=== PATIENT | female | born 1950 | race Caucasian/White ===

== ENCOUNTER 2018-12-08 06:27 | Day surgery (SDC) | payer MEDICARE, BC ==
--- NOTE | 2018-11-29 20:36 | HP ---
PREOPERATIVE HISTORY AND PHYSICAL: DATE OF SURGERY/ADMISSION: 12/08/18 DATE OF OFFICE VISIT/ENCOUNTER: 11/13/18 ATTENDING SURGEON: Teri Currie MD.* (DICTATED BY CHARLEE MELISSA) PROCEDURE: Left wrist de Quervain's release. HISTORY OF PRESENT ILLNESS: This is a 68-year-old female who has complaints of left wrist pain ongoing for nearly a year. The pain is located on the radial aspect of her wrist along the first dorsal compartment. She has failed conservative treatment including ibuprofen, topical Arnica, thumb spica wrist brace, and cortisone injection as well as physical therapy. She is now interested in pursuing surgical intervention for this problem in the form of a left wrist de Quervain's release. PAST MEDICAL HISTORY: 1. Asthma. 2. Arthritis. 3. History of hepatitis C approximately 30 years ago. 4. Anxiety/depression. PAST SURGICAL HISTORY: 1. Cholecystectomy. 2. Appendectomy. 3. Tonsillectomy. CURRENT MEDICATIONS: 1. Concerta 18 mg p.r.n. 2. Cymbalta 20 mg daily. 3. Lexapro 20 mg daily. ALLERGIES: No known drug allergies. FAMILY MEDICAL HISTORY: Heart disease and colon cancer. 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 She denies tobacco use and recreational drug use. She drinks alcohol on occasion. REVIEW OF SYSTEMS: Negative for general, cephalic, cardiovascular, respiratory , GI, , other musculoskeletal, integumentary, endocrine, neurologic, and hematologic symptoms. Infectious Diseases: Negative for MRSA, hepatitis C, HIV. PHYSICAL EXAMINATION GENERAL: Well-developed, well-nourished 68-year-old female, in no acute distress. VITAL SIGNS: Height 5 feet 4 inches, weight 160 pounds, blood pressure 136/88, pulse rate 80. HEENT: Normocephalic, atraumatic. Pupils are equal, round, and reactive to light and accommodation. Extraocular movements are intact. Throat is clear. NECK: Supple. No palpable lymph nodes. PULMONARY: Lungs are clear to auscultation bilaterally. No wheezes, rales, or rhonchi. CARDIOVASCULAR: Regular rate and rhythm. S1, S2. No murmurs, rubs, or gallops. No edema. ABDOMEN: Positive bowel sounds. Soft, nontender. NEUROLOGICAL: Alert and oriented x3. Cranial nerves II through XII are intact. Sensation is intact to light touch. MUSCULOSKELETAL: On exam of her left wrist, there is no visible swelling. She has tenderness to palpation of the radial styloid and along the first dorsal compartment, increased pain with abduction of the thumb and extension of the wrist. Full opposition of the thumb to the base of the pinky with no pain. Positive Jackie's test. No tenderness to palpation at the base of the first metacarpal. Neurovascular function is intact. IMPRESSION: Left wrist de Quervain's tenosynovitis. PLAN: The patient is scheduled to undergo a left wrist de Quervain's release with Dr. Currie on 12/08/18. She will return to the office 10 days postop for followup and suture removal. A prescription for Tylenol No. 3 was e-scribed to the patient's pharmacy for postoperative pain management. CHARLEE MELISSA [id number]/CPS #: [id number] MTDEllie
[~2018-12-08 06:27] MED LIST: Buffered Lidocaine 1% SYRIN* 1 ML/SYRINGE INTRADERM ONE; Lactated Ringers 1000 ML Bag* 1,000 ML IV SCH
[2018-12-08] MEDS ORDERED: fentaNYL* 50 MCG/ML 2 ML VIAL (100 MCG VIAL) ONE (07:23)
[2018-12-08] MEDS ORDERED: Midazolam* 1 MG/ML 2 ML VIAL (2 MG) ONE (07:23)
[2018-12-08] MEDS ORDERED: Lidocaine 1% INJ* 10 MG/ML 30 ML SDV ONE (07:27)
[2018-12-08] MEDS ORDERED: Naloxone* 0.4 MG/ML 1 ML VIAL IV PRN (07:57)
[2018-12-08 08:03] VITALS: BP 117/72
--- NOTE | 2018-12-08 13:33 | OP ---
DATE OF OPERATION: 12/08/18 [facility] DATE OF : [birth year]. SURGEON: Teri Currie MD. EMBEDDED SOFTWARE ENGINEER: CHARLEE Martinez. ANESTHESIA: Local MAC. PRE-OP DIAGNOSIS: Left de Quervain tenosynovitis. POST-OP DIAGNOSIS: Left de Quervain tenosynovitis. OPERATIVE PROCEDURE: Left de Quervain release. ESTIMATED BLOOD LOSS: Zero. TOURNIQUET TIME: About 10 minutes. INDICATIONS FOR PROCEDURE: Irena is a 68-year-old female who has pain on the radial aspect of her left wrist. She has failed conservative treatment, presents now for de Quervain release on the left wrist. DESCRIPTION OF PROCEDURE: The patient was brought to the operating room, was given a sedation anesthetic and a local infiltration of 10 cc of 1% plain lidocaine on the radial aspect of her left wrist. The skin of her left upper extremity was prepped and draped in the usual sterile fashion. The hand and forearm were exsanguinated and the tourniquet elevated to 250 mmHg. A longitudinal incision was made on the radial aspect of the wrist, centered at the tip of the radiostyloid. We dissected through the subcutaneous tissue down to the first dorsal compartment. Branches of the radial sensory nerve were located and retracted by the surgical services assistant, CHARLEE Martinez. The first dorsal compartment was incised longitudinally. The APL and EPB tendons were in the same sheath. They were both fully released and were in good condition. The wound was irrigated and the skin edges reapproximated with 4-0 nylon suture. The wound was dressed with Xeroform, 4x4, Webril, and an Castillo wrap. The patient tolerated the procedure well and was brought to the recovery room in good condition. [id number]/[facility] #: [id number] [facility]
== END 2018-12-08 08:30 | disposition home or self-care (01) ==
LOC: OREAST 06:27
PROVIDERS: ATTEND Orthopaedic Surgery
DX: M65.4 Radial styloid tenosynovitis [de Quervain] (principal); J45.909 Unspecified asthma, uncomplicated; M19.90 Unspecified osteoarthritis, unspecified site; F41.8 Other specified anxiety disorders; Z86.19 Personal history of other infectious and parasitic diseases
CPT/HCPCS: J2250; J3010

== ENCOUNTER 2019-04-23 12:24 | Inpatient (IN) | payer MEDICARE, BC ==
--- NOTE | 2019-04-23 13:17 | ED ---
Psychiatric Complaint - HPI Summary HPI Summary: Patient is a 68-year-old female who presents emergency department for a mental health evaluation. Patient notes she has a history of depression and sees a nurse practitioner. Patient notes that she ran out of her Cymbalta over the weekend and notes depression has become worse since. Patient notes suicidal ideations. Patient denies suicide attempts. Notes occasional alcohol use, denies drug use. Patient has been admitted to the psychiatric unit in the past. Patient otherwise denies associated symptoms of fever, cough, chest pain , shortness of breath, abdominal pain, vomiting, diarrhea, urinary symptoms. Symptoms are moderate in severity. No current modifying factors. - History Of Current Complaint Chief Complaint: EDSuicidal Time Seen by Provider: 04/23/19 12:52 Hx Obtained From: Patient - Allergies/Home Medications Allergies/Adverse Reactions: Allergies Allergy/AdvReac Type Severity Reaction Status Date / Time No Known Allergies Allergy Verified 04/23/19 12:50 Home Medications: Home Medications LORazepam TAB(*) [Ativan 0.5 MG TAB (*)] 0.5 mg PO BEDTIME PRN 04/23/19 [ History Confirmed 04/23/19] Methylphenidate TAB* [Ritalin TAB*] 10 mg PO DAILY 04/23/19 [History Confirmed 04/23/19] PMH/Surg Hx/FS Hx/Imm Hx Previously Healthy: Yes Endocrine/Hematology History: Denies: Hx Diabetes Cardiovascular History: Denies: Hx Hypertension, Hx Pacemaker/ICD, Other Cardiovascular Problems/ Disorders Respiratory History: Reports: Hx Asthma - PRN INHALERS Denies: Other Respiratory Problems/Disorders GI History: Denies: Other GI Disorders History: Denies: Hx Renal Disease, Other Problems/Disorders Musculoskeletal History: Reports: Hx Arthritis - SHOULDERS AND KNEES, Hx Tendonitis - LEFT WRIST Denies: Hx Osteoporosis, Other Musculoskeletal History Sensory History: Reports: Hx Contacts or Glasses - GLASSES Denies: Hx Hearing Aid Opthamlomology History: Reports: Hx Contacts or Glasses - GLASSES Neurological History: Denies: Other Neuro Impairments/Disorders Psychiatric History: Reports: Hx Anxiety - ON MEDICATION FOR, Hx Depression - ON MEDICATION FOR Denies: Hx Panic Disorder - Cancer History Hx Chemotherapy: No Hx Radiation Therapy: No - Surgical History Surgery Procedure, Year, and Place: Cholecystectomy 2004-[facility] [place]. appendectomy 26 yrs ago-[facility] [place]. adhesions removed from fallopian tubes 29 yrs ago. TONSILS CHILD Hx Anesthesia Reactions: No Infectious Disease History: No Infectious Disease History: Reports: Hx Hepatitis - UNSURE POSSIBLY "C"-40 YEARS AGO Denies: Traveled Outside the [place] in Last 30 Days - Social History Alcohol Use: Weekly Alcohol Amount: 1 GLASS OF WINE 3-4 TIMES PER WEEK Substance Use Type: Reports: None Smoking Status (MU): Never Smoked Tobacco Have You Smoked in the Last Year: No Review of Systems Constitutional: Negative Negative: Fever Cardiovascular: Negative Respiratory: Negative Gastrointestinal: Negative Genitourinary: Negative Neurological: Negative Positive: Depressed All Other Systems Reviewed And Are Negative: Yes Physical Exam Triage Information Reviewed: Yes Vital Signs On Initial Exam: Initial Vitals Temp Pulse Resp BP Pulse Ox 97.9 F 82 16 172/109 94 04/23/19 12:43 04/23/19 12:43 04/23/19 12:43 04/23/19 12:43 04/23/19 12:43 Vital Signs Reviewed: Yes Appearance: Positive: Well-Appearing - Patient sitting on bed in no acute distress. Family member present. Cooperative. Skin: Positive: Warm, Dry Head/Face: Positive: Normal Head/Face Inspection Eyes: Positive: Normal, EOMI Neck: Positive: Supple Respiratory/Lung Sounds: Positive: Clear to Auscultation, Breath Sounds Present Cardiovascular: Positive: Normal, RRR Neurological: Positive: Normal, Alert, Oriented to Person Place, Time, CN Intact II-III Psychiatric: Positive: Depressed Procedures - Sedation Patient Received Moderate/Deep Sedation with Procedure: No Diagnostics - Vital Signs Vital Signs Temp Pulse Resp BP Pulse Ox 04/23/19 12:43 97.9 F 82 16 172/109 94 - Laboratory Result Diagrams: 04/23/19 13:22 04/23/19 13:22 Lab Statement: Any lab studies that have been ordered have been reviewed, and results considered in the medical decision making process. Course/Dx - Course Course Of Treatment: Patient here for mental health evaluation of increased depression and suicidal ideations. She is medically clear at this time. ECG done [id number] shows a rhythm of 74bpm, normal axis, appropriate intervals. Pt. will be signed out to KALPANA Christine for disposition. - Differential Dx/Clinical Impression Differential Diagnosis/HQI/PQRI: Positive: Anxiety, Depression, Suicidal Ideation Provider Diagnosis: Depression Discharge ED - Sign-Out/Discharge Documenting (check all that apply): Sign-Out Patient Signing out patient TO: Mg Solis - Discharge Plan Condition: Stable Referrals: Linda Torres MD [Primary Care Provider] - - Billing Disposition and Condition Condition: STABLE - Attestation Statements Provider Attestation: I agree with the VICKIE documentation - 68 y/o F p/w depression. Agreeable to voluntary admission. Addendum entered and electronically signed by Edwin Guerra PA 04/23/19 17:38: ED Addendum Addendum: Pt. was accepted to the [facility]. Dispo: [facility] Condition: Stable Dx: Depression, SI.
[2019-04-23 13:29] LABS: ABS Basophils 0.1 10^3/ul (0-0.2); ABS Eosinophils 0.3 10^3/ul (0-0.6); ABS Lymphocytes 3.1 10^3/ul (1.0-4.8); ABS Monocytes 0.4 10^3/ul (0-0.8); ABS Neutrophils 3.3 10^3/ul (1.5-7.7); Eosinophil % 4.1 %; Hematocrit 41 % (35-47); Hemoglobin 13.7 g/dL (12.0-16.0); Mean Corpuscular HGB Conc 34 g/dL (31-36); Mean Corpuscular Hemoglobin 29 pg (27-31); Mean Corpuscular Volume 87 fL (80-97); Mean Platelet Volume 8.1 fL (7.4-10.4); Nucleated Red Blood Cells % 0.1; Platelet Count 233 10^3/uL (150-450); Red Blood Count 4.68 10^6 /uL (3.70-4.87); Red Cell Distribution Width 14 % (10-15); White Blood Count 7.2 10^3/uL (3.5-10.8)
[2019-04-23 13:48] LABS: ALT 38 U/L (7-52); AST 23 U/L (13-39); Albumin 4.3 g/dL (3.2-5.2); Albumin/Globulin Ratio 1.3 (1-3); Alkaline Phosphatase 81 U/L (34-104); Anion Gap 5 mmol/L (2-11); BUN/Creatinine Ratio 27.3 (8-20); Blood Urea Nitrogen 18 mg/dL (6-24); CO2 Carbon Dioxide 28 mmol/L (22-32); Calcium 9.1 mg/dL (8.6-10.3); Chloride 106 mmol/L (101-111); EGFR African American 107.4 (>60); EGFR Non-African American 88.8 (>60); Globulin 3.4 g/dL (2-4); Glucose 107 mg/dL (70-100); Potassium 4.5 mmol/L (3.5-5.0); Sodium 139 mmol/L (135-145); Total Protein 7.7 g/dL (6.4-8.9)
[2019-04-23 13:54] LABS: Acetaminophen < 15 mcg/mL; Alcohol < 10 mg/dL (<10); Salicylate < 2.50 mg/dL (<30)
[2019-04-23 14:09] LABS: TSH (Thyroid Stimulating Horm) 4.09 mcIU/mL (0.34-5.60)
[2019-04-23 14:10] LABS: Urine Appearance Clear; Urine Bilirubin Negative (Negative); Urine Blood 1+ (Negative); Urine Color Yellow; Urine Glucose Negative (Negative); Urine Ketones Negative (Negative); Urine Nitrite Negative (Negative); Urine Protein Negative (Negative); Urine Specific Gravity 1.011 (1.010-1.030); Urine Urobilinogen Negative (Negative)
[2019-04-23 14:15] LABS: Urine Bacteria Absent (Absent); Urine Red Blood Cell 1+(3-5/hpf) (Absent); Urine Squamous Epithelial Cell Present (Absent); Urine Transitional Epithelial Present (Absent); Urine White Blood Cell 2+(11-20/hpf) (Absent)
[2019-04-23 14:22] LABS: Urine Benzodiazepine Screen None Detected (None Detect); Urine Opiates Screen None Detected (None Detect)
[2019-04-23] MEDS ORDERED: Al Hydrox/Mg Hydrox/Simet LIQ* 30 ML UDC PO PRN (19:34)
[2019-04-23] MEDS ORDERED: Acetaminophen TAB* 325 MG PO PRN (19:34)
[2019-04-24 08:21] VITALS: BP 136/78
[2019-04-24] MEDS ORDERED: Ibuprofen TAB* 600 MG PO PRN (08:25)
[2019-04-24] MEDS ORDERED: Methylphenidate ER TAB* 18 MG PO SCH (09:00)
[2019-04-24] MEDS ORDERED: Vitamin THERAPEUTIC TAB PO SCH (09:00)
[2019-04-24] MEDS ORDERED: DULoxetine DR CAP* 20 MG CAP.DR PO SCH (09:00)
[2019-04-24] MEDS ORDERED: Escitalopram * 20 MG TABLET PO SCH (09:00)
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
--- NOTE | 2019-04-24 19:20 | HP ---
HISTORY AND PHYSICAL/DISCHARGE SUMMARY: ADDENDUM: DISCHARGE INSTRUCTIONS: D. Followup care: She has an appointment with Marilyn Valenzuela, on 06/28/18 at 2 p.m. She also has an appointment with Shiloh Osuna on Tuesday. She is also advised to dolores Carrillo M.D., her primary care provider. E. Disposition: She is being discharged to her home. F. Substance abuse followup is not indicated. HOSPITAL COURSE: Psychiatric treatment was rendered. Irena was admitted to the adult behavioral unit and placed on q.15-minute checks for safety. She did well on the unit. She interacted with peers aysha galeana. There were no medication changed, but she did reinstate the duloxetine that she was missing. S he spoke extensively about her family. They came to visit her at noon and determined that it was adv isable to send her home and discharge her. No consults were entered. She has significantly improved . She is less helpless. She is searching for ways to be in more independent as well as able to reac h out for her daughter and son's help when she needs them. She is future oriented and looking forwar d to [facility] get-[facility]. In general, she is doing well and eager for discharge. ASHVIN KNOWLES, LYNDA [id number]/CPS #: [id number]
== END 2019-04-24 12:50 | disposition home or self-care (01) | DRG 885 ==
LOC: ED 12:24 → BSU 21:42
PROVIDERS: ADMIT Psychiatry & Neurology Psychiatry; ATTEND Psychiatry & Neurology Psychiatry
DX: F33.8 Other recurrent depressive disorders (principal); J45.909 Unspecified asthma, uncomplicated; M17.0 Bilateral primary osteoarthritis of knee; M19.012 Primary osteoarthritis, left shoulder; M19.011 Primary osteoarthritis, right shoulder; F41.9 Anxiety disorder, unspecified; Z91.410 Personal history of adult physical and sexual abuse; Z79.899 Other long term (current) drug therapy
CPT/HCPCS: 36415; 80053; 80307; 80320; 80329; 81003; 81015; 84443; 85025; 87086; 93005; 99283; A9270-GY; G0480

== ENCOUNTER 2019-06-11 07:37 | Day surgery (SDC) | payer MEDICARE, BC ==
[~2019-06-11 07:37] MED LIST changes: +Acetaminophen TAB* 325 MG PO PRN; -Buffered Lidocaine 1% SYRIN* 1 ML/SYRINGE INTRADERM ONE; -Lactated Ringers 1000 ML Bag* 1,000 ML IV SCH
[2019-06-11] MEDS ORDERED: fentaNYL* 50 MCG/ML 2 ML VIAL (100 MCG VIAL) ONE (08:08)
[2019-06-11] MEDS ORDERED: Midazolam* 1 MG/ML 2 ML VIAL (2 MG) ONE ×2 (08:08→08:45)
[2019-06-11 09:14] VITALS: BP 139/86
--- NOTE | 2019-06-11 10:28 | OP ---
DATE OF OPERATION: 06/11/2019 - [facility] DATE OF : 1950. SURGEON: Donnell Mart MD ANESTHESIA: Monitored anesthesia care. PREOPERATIVE DIAGNOSIS: Cataract, right eye. POSTOPERATIVE DIAGNOSIS: Cataract, right eye. OPERATIVE PROCEDURE: Extracapsular cataract extraction of the right eye with intraocular lens implant. IMPLANT: SN60WF 18.5 diopter lens to the right eye. COMPLICATIONS: None. DESCRIPTION OF PROCEDURE: The patient was given phenylephrine 2.5 % and cyclopentolate 1% eye drops to the operative eye in the preoperative area. The patient was taken to the operating room where a time-out was taken to identify the correct patient, site, and side of surgery. The patient's right eye was prepped and draped in the usual sterile fashion with 5% Betadine. A second time- out was taken to verify the correct patient, side, and site of surgery, as well as the correct lens implant. A lid speculum was placed to the right eye. A 1mm paracentesis blade was used to make a clear corneal incision. Preservative-free 1% lidocaine was injected into the anterior chamber. DisCoVisc was then injected into the anterior chamber. A 2.75 mm keratome blade was used to make a triplanar incision. A cystotome initiated a capsulorrhexis, which was completed with Utrata forceps in a continuous and curvilinear manner. Hydrodissection of the lens was performed with BSS on a cannula. The lens could be spun in a capsular bag. The phacoemulsification handpiece was used with a divide-and- conquer technique to remove the nucleus. The I/A handpiece then removed the residual cortical lens material. DisCoVisc was injected to inflate the capsular bag. The planned SN60WF 18.5 diopter lens was injected into the capsular bag. The residual DisCoVisc was removed from the eye with the I/A handpiece. The corneal incisions were hydrated and no leaks occurred at physiologic pressure around 20 mmHg per palpation. The lid speculum was removed and drapes were removed. Maxitrol ointment was placed to the surface of the operative eye. An adhesive patch and shield was then placed on the operative eye. The patient was taken to the postoperative area in stable condition. [id number]/[facility] #: [id number] [facility]
[2019-06-11] MEDS ORDERED: Ketorolac 0.5% OPHTH (NF) 0.5 % 5 ML BTL ONE (11:08)
[2019-06-11] MEDS ORDERED: Tropicamide 1% OPTH.SOL* BTL ONE (11:08)
[2019-06-11] MEDS ORDERED: Lidocaine 1% MPF ** 5 ML VIAL ONE (11:08)
[2019-06-11] MEDS ORDERED: Neomycin/Polymy/Dex OPHTH.OIN* 3.5 GM ONE (11:08)
[2019-06-11] MEDS ORDERED: Cyclopentolate 1% OPTH.SOL* 2 ML BTL ONE (11:08)
[2019-06-11] MEDS ORDERED: Povidone Iodine 5% OPTH* 30 ML BTL ONE (11:08)
[2019-06-11] MEDS ORDERED: Phenylephrine OPHTH SOL 2.5%* 2 ML ONE (11:08)
[2019-06-11] MEDS ORDERED: Tetracaine 0.5% OPTH.SOL 4 ML* 1 DROP BTL ONE (11:08)
[2019-06-11] MEDS ORDERED: acetaZOLAMIDE TAB* 250 MG ONE (11:08)
[2019-06-11] MEDS ORDERED: Buffered Lidocaine 1% SYRIN* 1 ML/SYRINGE INTRADERM ONE (16:34)
== END 2019-06-11 09:26 | disposition home or self-care (01) ==
LOC: OREAST 07:37
PROVIDERS: ATTEND Student in an Organized Health Care Education/Training Program
DX: H25.11 Age-related nuclear cataract, right eye (principal); H40.1131 Primary open-angle glaucoma, bilateral, mild stage; H04.123 Dry eye syndrome of bilateral lacrimal glands; H43.813 Vitreous degeneration, bilateral; M19.90 Unspecified osteoarthritis, unspecified site; J45.909 Unspecified asthma, uncomplicated; F41.8 Other specified anxiety disorders; Z86.19 Personal history of other infectious and parasitic diseases
CPT/HCPCS: A9270-GY; J2250; J3010; V2632

== ENCOUNTER 2019-06-18 07:07 | Day surgery (SDC) | payer MEDICARE, BC ==
[2019-06-18] MEDS ORDERED: Midazolam* 1 MG/ML 2 ML VIAL (2 MG) ONE ×2 (07:43→08:18)
[2019-06-18 09:05] VITALS: BP 146/73
--- NOTE | 2019-06-18 10:44 | OP ---
DATE OF OPERATION: 06/18/2019 - [facility] DATE OF : 1950. SURGEON: Donnell Mart MD ANESTHESIA: Monitored anesthesia care. PREOPERATIVE DIAGNOSIS: Cataract, left eye. POSTOPERATIVE DIAGNOSIS: Cataract, left eye. OPERATIVE PROCEDURE: Extracapsular cataract extraction of the left eye with intraocular lens implant. IMPLANT: SN60WF 18.5 diopter lens to the left eye. COMPLICATIONS: None. DESCRIPTION OF PROCEDURE: The patient was given phenylephrine 2.5 % and cyclopentolate 1% eye drops to the operative eye in the preoperative area. The patient was taken to the operating room where a time-out was taken to identify the correct patient, site, and side of surgery. The patient's left eye was prepped and draped in the usual sterile fashion with 5% Betadine. A second time- out was taken to verify the correct patient, side, and site of surgery, as well as the correct lens implant. A lid speculum was placed to the left eye. A 1mm paracentesis blade was used to make a clear corneal incision. Preservative-free 1% lidocaine was injected into the anterior chamber. DisCoVisc was then injected into the anterior chamber. A 2.75 mm keratome blade was used to make a triplanar incision. A cystotome initiated a capsulorrhexis, which was completed with Utrata forceps in a continuous and curvilinear manner. Hydrodissection of the lens was performed with BSS on a cannula. The lens could be spun in a capsular bag. The phacoemulsification handpiece was used with a divide-and- conquer technique to remove the nucleus. The I/A handpiece then removed the residual cortical lens material. DisCoVisc was injected to inflate the capsular bag. The planned SN60WF 18.5 diopter lens was injected into the capsular bag. The residual DisCoVisc was removed from the eye with the I/A handpiece. The corneal incisions were hydrated and no leaks occurred at physiologic pressure around 20 mmHg per palpation. The lid speculum was removed and drapes were removed. Maxitrol ointment was placed to the surface of the operative eye. An adhesive patch and shield was then placed on the operative eye. The patient was taken to the postoperative area in stable condition. [id number]/[facility] #: [id number] [facility]
[2019-06-18] MEDS ORDERED: Cyclopentolate 1% OPTH.SOL* 2 ML BTL ONE (12:57)
[2019-06-18] MEDS ORDERED: acetaZOLAMIDE TAB* 250 MG ONE (12:57)
[2019-06-18] MEDS ORDERED: Lidocaine 1% MPF ** 5 ML VIAL ONE (12:57)
[2019-06-18] MEDS ORDERED: Phenylephrine OPHTH SOL 2.5%* 2 ML ONE (12:58)
[2019-06-18] MEDS ORDERED: Tropicamide 1% OPTH.SOL* BTL ONE (12:58)
[2019-06-18] MEDS ORDERED: Povidone Iodine 5% OPTH* 30 ML BTL ONE (12:58)
[2019-06-18] MEDS ORDERED: Ketorolac 0.5% OPHTH (NF) 0.5 % 5 ML BTL ONE (12:58)
[2019-06-18] MEDS ORDERED: Neomycin/Polymy/Dex OPHTH.OIN* 3.5 GM ONE (12:58)
[2019-06-18] MEDS ORDERED: Tetracaine 0.5% OPTH.SOL 4 ML* 1 DROP BTL ONE (12:58)
== END 2019-06-18 09:02 | disposition home or self-care (01) ==
LOC: OREAST 07:07
PROVIDERS: ATTEND Student in an Organized Health Care Education/Training Program
DX: H25.12 Age-related nuclear cataract, left eye (principal); H40.1131 Primary open-angle glaucoma, bilateral, mild stage; H04.123 Dry eye syndrome of bilateral lacrimal glands; H43.813 Vitreous degeneration, bilateral; Z87.891 Personal history of nicotine dependence; J45.909 Unspecified asthma, uncomplicated; M19.90 Unspecified osteoarthritis, unspecified site; F41.8 Other specified anxiety disorders; R20.2 Paresthesia of skin; M48.00 Spinal stenosis, site unspecified
CPT/HCPCS: A9270-GY; J2250; V2632